=== PATIENT | female | born 1935 | race Two or more races ===

== ENCOUNTER 2023-01-31 11:37 | Inpatient (IN) | payer OTHER ==
[~2023-01-31] VITALS: Ht 152.4 cm; Wt 54.4 kg
[2023-01-31] MEDS ORDERED: CHILDREN'S ASPI81 MG PO (11:54)
[2023-01-31] MEDS ORDERED: LISINOPRIL2.5 MG PO (11:54)
[2023-01-31] MEDS ORDERED: MEMANTINE HCL5 MG PO (11:54)
[2023-01-31] MEDS ORDERED: PRAVASTATIN SOD20 MG PO (11:54)
--- NOTE | 2023-01-31 11:55 | NUR ---
SE RECIBE PTE EN AMBULANCIA ALERTA, DESORIENTADA PARAMEDICOS REFIEREN TRAER A PTE POR DIFICULTAD RESPIRATORIA. AL MOMENTO DEL TRIAGE PTE TIENE LA SATURACION EN 98%.
--- NOTE | 2023-01-31 12:55 | NUR ---
EVALUA PTE. SE EDUCA SOBRE [place] MEDICO,REFIERE COMPRENDER. SE REALIZAN MUESTRAS DE LABORATORIO BAJO MEDIDAS ASEPTICAS. SE ADMINISTRA IV'S BOBY ORDEN MEDICA. SE COORDINAN MARIYA X. PTE MANEJADA POR . PENDIENTE RE-EVALUACION MEDICA.
--- NOTE | 2023-01-31 13:15 | NUR ---
AREA DE CANALIZACION Y MUESTRAS CHELA DE EDEMA O ERITA CON BUEN TUGOR. SE CANALIZA CON ANGIO#[address]
[2023-02-10] MEDS ORDERED: LISINOPRIL2.5 MG PO (14:15)
[2023-02-10] MEDS ORDERED: TUSSIN DM LIQU118 ML PO (14:15)
[2023-02-10] MEDS ORDERED: ADULT ASPIRIN81 MG PO (14:15)
[2023-02-10] MEDS ORDERED: PRAVASTATIN SOD20 MG PO (14:15)
[2023-02-10] MEDS ORDERED: NAMENDA5 MG PO (14:15)
== END 2023-02-10 21:30 | disposition home or self-care (01) | DRG 690 ==
LOC: ER 11:37 → MEDJ 19:46 → EDBD 19:46 → MEDJ 02-03 15:30
PROVIDERS: General Practice; Internal Medicine Infectious Disease; ADMIT Internal Medicine; ATTEND Internal Medicine
PROC: B24BZZZ Ultrasonography of Heart with Aorta (ICD-10-PCS; principal; 2023-02-01)
PROC: BW24ZZZ Computerized Tomography (CT Scan) of Chest and Abdomen (ICD-10-PCS; 2023-02-01)
DX: N39.0 Urinary tract infection, site not specified (principal); E87.0 Hyperosmolality and hypernatremia; I50.20 Unspecified systolic (congestive) heart failure; K44.9 Diaphragmatic hernia without obstruction or gangrene; G30.9 Alzheimer's disease, unspecified; F02.80 Dementia in other diseases classified elsewhere, unspecified severity, without behavioral disturbance, psychotic disturbance, mood disturbance, and anxiety; E78.5 Hyperlipidemia, unspecified; Z74.01 Bed confinement status; I11.0 Hypertensive heart disease with heart failure; B37.9 Candidiasis, unspecified; B96.89 Other specified bacterial agents as the cause of diseases classified elsewhere